=== PATIENT | male | born 1985 | race Caucasian/White ===

== ENCOUNTER 2021-10-30 17:17 | Emergency (ER) | payer MEDICAID ==
[2021-10-30] MEDS ORDERED: Ketorolac 60 MG/2 ML SDV IM ONE (17:46)
[2021-10-30] MEDS ORDERED: Orphenadrine 60 MG/2 ML Inj IM ONE (17:46)
[2021-11-03 12:07] LABS: C.TRACHOMATIS BY TMA Negative (Negative); N.GONORRHOEAE BY TMA Negative (Negative)
== END 2021-10-30 18:59 | disposition home or self-care (01) ==
LOC: MW.ED 17:17
DX: S39.012A Strain of muscle, fascia and tendon of lower back, initial encounter (principal); N39.0 Urinary tract infection, site not specified
CPT/HCPCS: 81001; 87086; 87491; 87591; 96372; 99283; J1885; J2360

== ENCOUNTER 2021-12-15 11:30 | Emergency (ER) | payer MEDICAID ==
[2021-12-15] MEDS ORDERED: Acetaminophen/HYDROcodone 325-5 MG Tab PO ONE (11:43)
== END 2021-12-15 13:10 | disposition home or self-care (01) ==
LOC: MW.ED 11:30
DX: M25.551 Pain in right hip (principal)
CPT/HCPCS: 73502; 99283; A9270